=== PATIENT | male | born 2000 | race Caucasian/White ===

== ENCOUNTER 2023-04-01 18:04 | Emergency (ER) | payer OTHER, SELFPAY ==
--- NOTE | ~2023-04-01 | XR_ITS ---
XR ankle RT min 3V DATE: 04/01/2023 18:48 INDICATION: Right ankle pain for 6 days. No known injury. TECHNIQUE: 4 views COMPARISON: None FINDINGS: There is mild lateral ankle soft tissue swelling. Os subfibular artery, normal variant. No recent fracture or dislocation of the ankle or disruption of the ankle mortise is detected. No per iosteal reaction or bone destruction. IMPRESSION: Mild lateral soft tissue swelling Reviewed, dictated and finalized at location A.
[2023-04-01 18:18] VITALS: BP 120/63; PULSE 84; RESP 16; TEMP 37.2; O2SAT 100
--- NOTE | 2023-04-01 18:41 | ED.GENADULT ---
HPI - General Adult General Chief complaint: Extremity Injury, Lower Stated complaint: Right Ankle Injury Source: patient Mode of arrival: ambulatory Limitations: no limitations History of Present Illness HPI narrative: Patient presents for evaluation of right ankle pain for the last 5 days. He works doing some type of rescue worked out in [place] and woke from sleep near the job site the day of symptom onset with pain in lateral aspect of right ankle. He denies any known precipitating cause or injury. No hx of similar symptoms. Pain has progressively worsened since the time of symptom onset. He states his current pain is sharp, throbbing, 6/10 in severity. No loss of range of motion but movement makes his pain worse. No new footwear which could be rubbing the affected area. Reports some redness to the lateral aspect of the right ankle. He has taken two doses of ibuprofen 800mg today without considerable improvement. No hx of gout. No wounds to the ankle or foot. Related Data Allergies Allergy/AdvReac Type Severity Reaction Status Date / Time No Known Allergies Allergy Verified 04/01/23 18:22 Review of Systems Review of Systems: CONSTITUTIONAL: Denies fever, chills, or sweats. EYES: Denies visual changes, redness, or discharge. ENT: Denies rhinorrhea, congestion, sore throat, or otalgia. CARDIOVASCULAR: Denies chest pain, palpitations, or edema. RESPIRATORY: Denies cough or dyspnea. GASTROINTESTINAL: Denies abdominal pain, nausea, vomiting, or diarrhea. GENITOURINARY: Denies dysuria or hematuria. SKIN: Reports redness to the lateral aspect of the right ankle. Denies rash or itching. MUSCULOSKELETAL: Reports pain and swelling in the right ankle. NEUROLOGIC: Denies headache, numbness, dizziness, or weakness. PSYCHIATRIC: Denies anxiety or depression. [facility] Past Medical History Medical History (Updated 04/01/23 @ 19:16 by Barrie Lagunas, TAMARA, SANDEEP) Arthralgia No pertinent past medical history Surgical History Surgical History No pertinent past surgical history Family History Family History Mother Family history non-contributory Social History Social History Smoking status: Never smoker Substance use: never Living arrangements: with family Gender identity (if verbalized by the patient): Male Sexual Orientation (if Verbalized by the Patient): Straight or Heterosexual Spiritual care concerns: No Exam Narrative: GENERAL: Well-appearing, well-nourished, and in no acute distress. HEAD: Normocephalic, atraumatic. EYES: PERRLA and EOMI. ENT: Nares clear, no rhinorrhea or epistaxis. Mucous membranes moist. Oropharynx without tonsillar hypertrophy exudate or other lesions. Bilateral TMs pearly castro nonbulging NECK: Supple. No adenopathy or masses. No carotid bruits or JVD CHEST: Clear to auscultation. No respiratory distress. No wheezes rales or rhonchi HEART: Regular rate and rhythm. No murmur heard. Normal peripheral pulses. ABDOMEN: Soft, nontender, nondistended, normal active bowel sounds. EXTREMITIES: Able to dorsi and plantar flex the right foot. There is trace swelling to lateral aspect of right ankle. There is tenderness overlying the right lateral malleolus. SKIN: There is erythema overlying the lateral aspect of right ankle with associated warmth. Warm, dry, no rash. NEURO: No focal deficits. Alert and oriented x3. PSYCH: Normal mood and affect. Course Course Emergency Course: This is a 22-year-old male who presented for evaluation of right ankle pain. I suspect he has gout. X-ray showed soft tissue swelling. There is no overlying wound to suggest septic joint. Furthermore he still has range of motion intact. Less likely consideration would be cellulitis. Will treat with prednisone and hy
== END 2023-04-01 19:20 | disposition home or self-care (01) ==
PROVIDERS: Emergency Provider Nurse Practitioner
DX: M25.571 Pain in right ankle and joints of right foot (principal)
CPT/HCPCS: 73610; 99213; G0463